=== PATIENT | female | born 1950 | race African-American/Black ===

== ENCOUNTER 2022-01-26 10:11 | Emergency (ER) | payer MEDICARE, SELFPAY ==
--- NOTE | ~2022-01-26 | XR_ITS ---
EXAMINATION: XR ELBOW, RIGHT CLINICAL INFORMATION: Fall COMPARISON: None TECHNIQUE: 1 lateral view of the right elbow. FINDINGS: Limited incomplete evaluation the provided view. The elbow joint articulation grossly appears maintained on the lateral view. Suboptimal evaluation for joint effusion, without large joint effusion identified.. On the single view, no obvious fractures seen, but evaluation is limited. XR/XR elbow RT min 3V IMPRESSION: Limited evaluation on the single lateral view. No obvious fractures seen. Evaluation for joint effusion cannot be reliably done. Recommend complete elbow x-ray imaging for further evaluation.
--- NOTE | ~2022-01-26 | XR_ITS ---
EXAMINATION: XR SHOULDER, RIGHT CLINICAL INFORMATION: Fall, pain COMPARISON: None TECHNIQUE: Three views of the right shoulder. FINDINGS: Comminuted fracture of the proximal left humeral neck. There is medial displacement of the distal bone by full shaft width, with overriding of the fracture fragments and foreshortening. Mild glenohumeral joint arthritis. Moderate acromioclavicular arthritis. No clavicle fracture is seen. There is a dual-lumen catheter projected along the right side of the mediastinum, suboptimally evaluated. XR/XR shoulder RT min 2V IMPRESSION: Comminuted displaced left proximal humeral neck fracture. Mild glenohumeral joint arthritis. Moderate acromioclavicular arthritis.
[2022-01-26 10:17] VITALS: BP 153/71; PULSE 68; RESP 18; TEMP 36.8; O2SAT 98; BMI 28.0
--- NOTE | 2022-01-26 11:23 | ECG_ITS ---
Test Reason : FALL Blood Pressure : / mmHG Vent. Rate : 074 BPM Atrial Rate : 074 BPM P-R Int : 176 ms QRS Dur : 084 ms QT Int : 410 ms P-R-T Axes : 069 031 055 degrees QTc Int : 455 ms Normal sinus rhythm Normal ECG No previous ECGs available Referred By: Brittany Overton Electronically Signed By:MONICO URIZ
--- NOTE | 2022-01-26 11:23 | ED_ITS ---
HPI - Fall General Chief Complaint: Fall Stated Complaint: Fall/R elbow pain Time Seen by Provider: 01/26/22 11:10 Source: patient and family Mode of arrival: ambulatory Limitations: no limitations History of Present Illness HPI Narrative: 72-year-old female pmhx esrd on HD (M,W,F) presents to the emergency post fall with right shoulder and elbow pain. Patient tells me she is unsure how she fell, she denies any preceding symptoms such as chest pain or shortness of breath. She tells me she thinks she was just tired and she tripped, she fell hitting her right shoulder and elbow on the ground she also had it on me wall. Patient tells me she is not anticoagulated. She did not lose consciousness. She denies headache, chest pain, shortness of breath, nausea, vomiting, fevers, chills, abdominal pain, vision changes. MD complaint: fall Onset (ago): hour(s) (2) Fall from: standing Fall witnessed: no Place fall occurred: home Loss of consciousness: none Prolonged down time: no Symptoms prior to fall: none Context: tripped/slipped Related Data Previous Rx's Medication Instructions Recorded morphine 15 mg immediate release 15 mg PO Q8H PRN pain #10 tabs 01/26/22 tablet Allergies Allergy/AdvReac Type Severity Reaction Status Date / Time nabumetone [From Relafen] Allergy Unknown Verified 01/26/22 10:20 Penicillins Allergy Unknown Verified 01/26/22 10:20 Review of Systems Review of Systems: Constitutional : No Weight loss, No Fever, No Chills, No Fatigue, No Malaise ENT/Mouth : No sore throat, No Rhinorrhea Eyes: No Eye Pain, No Swelling, No Redness Cardiovascular : No Chest Pain, No SOB, No Dyspnea on Exertion, No Orthopnea, No Edema, No Palpitations Respiratory : No Cough, No Sputum, No Wheezing Gastrointestinal : No Nausea, No Vomiting, No Diarrhea, No Constipation, No abdominal Pain, No Hematochezia, No Melena Genitourinary : No Dysuria, No Urinary Frequency, No Hematuria, Musculoskeletal : + joint pain, No Myalgias, No Joint Swelling Skin : No Skin Lesions, No rash Neuro : No Weakness, No Numbness, No Dizziness, No Headache Psych : No Anxiety/Panic, No Depression All other systems reviewed and are negative Yes all other systems are reviewed and are negative [facility] Past Medical History Attestation statement: The following information was validated with the patient. Source: old records reviewed and nursing notes reviewed Social History Social History Advance Directives: No Advance Directives Information Provided: No Physical Exam Vital Signs: Vital Signs: Last Vital Signs Temp 98.1 F 01/26/22 15:21 Pulse 78 01/26/22 15:21 Resp 16 01/26/22 15:21 BP 170/67 H 01/26/22 15:21 Pulse Ox 95 01/26/22 15:21 O2 Del Method 01/26/22 15:21 BMI result Body Mass Index 28.0 VSS Appearance: Alert.? Oriented X3.? No acute distress.? Head: Normocephalic, atraumatic, no step-offs or deformities Eyes: Pupils equal, round and reactive to light.? ENT: Pharynx normal.? Neck: Normal inspection.? Neck supple.? CVS: Normal heart rate and rhythm.? Pulses normal.? Respiratory: No respiratory distress.? Breath sounds normal.? Abdomen: Soft and nontender.? Skin: Skin warm and dry.? Normal skin color.? Normal skin turgor.? Extremities: No lower extremity edema.? No calf ttp. 5/5 strength to bilateral upper and lower extremities + deformity to R. shoulder cant move it pain w/ palpation over right shoulder + swollen RUE 2+ pulse radial left 1+ radial pulse right. + right arm fistula w/ thrill and bruit. Neuro: Oriented X 3.? No motor deficit.? No sensory deficit. CN 2-12 intact Course Reevaluation(s) Reevaluation #1: Wet read of the x-ray of the right shoulder reveals a proximal humeral fracture,. Waiting for final read. Time: 15:12 Reevaluation #2: X-ray of the right shoulder with proximal humeral fracture with overlapping fragments no dislocation. AC with degenerative changes. X-ray of the right elbow negative no acute fractures or dislocations. So CBC within normal limits. Chemistry pending. Troponin negative. EKG with normal sinus rhythm, no ST elevations or inversions that are concerning for ischemia. I do not suspect ACS. Likely trip and fall. Patient has been in normal sinus rhythm on the monitor, throughout her stay here. Chemistry pending will rule out electrolyte abnormalities with chemistry. Time: 16:07 Reevaluation #3: This case was discussed with Ananda who also discussed this case w/ Dr. Adams they tell me it will reduce on its own and we are not going to be able to alter alignment significantly w/ reduction, therefore to just put right shoulder in a sling and have her call orthopedics for follow-up. Time: 16:11 Additional Reevaluation(s): 1722 Patient is noted to have a potassium of 5.3, she was given 10 of Lokelma, BUN 76, creatinine 6.54, last dialysis session was this past ThursdayJanuary 24, scheduled for dialysis tomorrow. At this time patient will be discharged home a prompted to go to dialysis tomorrow, and follow up with Orthopedics. Advised her to return with new or worsening symptoms. Outlined worrisome signs and symptoms on discharge in 1 to return. I did obtain records from [facility], in December 2021 patient's BUN was 46, creatinine 5.2. Patient will be dialyzed tomorrow. I feel comfortable discharge home 1825 Discussed this case with Dr. Navarro who agrees patient can be discharged home with hemodialysis tomorrow. MDM - Fall MDM Narrative Medical decision making narrative: 1128 72-year-old female presents to the emergency department status post mechanical trip and fall now reporting right-sided shoulder and elbow pain times a few hours. Denies LOC. Not on blood thinners. Denies any other medical complaints. PE significant for 5/5 strength to bilateral upper and lower extremities + deformity to R. shoulder + swollen RUE 2+ pulse radial left 1+ radial pulse right. No wrist drop bilaterally. Will rule out fractures, dislocations. Plan at this time is plain films, basic labs, will obtain troponin and EKG as patient was unsure why she fell will rule out dysrhythmia/cardiac etiology Medical Records Attestation: I reviewed the patient's medical records. Lab Data Attestation: I reviewed the patient's lab results. Result diagrams: 01/26/22 15:18 01/26/22 15:18 Labs: Lab Results 01/26/22 01/26/22 01/26/22 Range/Units 15:18 15:18 15:18 WBC 9.4 (4.8-10.8) X10*3/uL RBC 4.03 L (4.20-5.50) X10*6/uL Hgb 11.3 L (12.0-16.0) g/dl Hct 35.7 L (37.0-47.0) % MCV 88.6 (80.0-98.0) fL MCH 28.0 (27.0-33.0) pg MCHC 31.7 (31.0-35.0) g/dl RDW 15.7 (11.0-16.0) % Plt Count 169 (160-400) X10*3/uL MPV 9.2 L (9.4-12.3) fL Immature Gran % (Auto) 0.7 H (0.0-0.4) % Neut % (Auto) 77.7 H (45-73) % Lymph % (Auto) 13.6 L (20-40) % Christian % (Auto) 7.1 (2-11) % Eos % (Auto) 0.6 (0-4) % Baso % (Auto) 0.3 (0-2) % Lymph # (Auto) 1.3 (1.2-4.9) X10*3/uL Christian # (Auto) 0.7 (0.1-1.2) X10*3/uL Eos # (Auto) 0.1 (0.0-0.4) X10*3/uL Baso # (Auto) 0.0 (0.0-0.2) X10*3/uL Abs Immat Gran (auto) 0.07 H (0.00-0.03) X10*3/uL Absolute Neuts (auto) 7.3 (2.0-8.3) x10*3/uL Absolute Nucleated RBC 0.000 (0.0-0.012) X10*3/uL Nucleated RBC % (auto) 0.0 (0.0-0.2) /100WBC Sodium 140 (135-145) mmol/L Potassium 5.3 H (3.3-5.1) mmol/L Chloride 105 (96-108) mmol/L Carbon Dioxide 23 (22-29) mmol/L Anion Gap 17 (12-20) BUN 76 H (9-16) mg/dL Creatinine 6.54 H* (0.5-1.4) mg/dL Estim Creat Clear Calc 7.5 Estimated GFR 6 Random Glucose 154 H (60-115) mg/dL Calcium 8.9 (8.4-10.2) mg/dL Magnesium 1.9 (1.6-2.6) mg/dL Total Bilirubin 0.3 (0.0-1.0) mg/dL AST 14 (5-31) U/L ALT 14 (0-31) U/L Alkaline Phosphatase 130 H (39-117) U/L Troponin I High Sens 5.0 (<3.5-17.0) ng/L Total Protein 6.8 (6.5-8.0) g/dL Albumin 3.6 (3.5-5.0) g/dL COVID-19 (EMIL) (Negative) COVID-19 Clin Com 01/26/22 Range/Units 15:18 WBC (4.8-10.8) X10*3/uL RBC (4.20-5.50) X10*6/uL Hgb (12.0-16.0) g/dl Hct (37.0-47.0) % MCV (80.0-98.0) fL MCH (27.0-33.0) pg MCHC (31.0-35.0) g/dl RDW (11.0-16.0) % Plt Count (160-400) X10*3/uL MPV (9.4-12.3) fL Immature Gran % (Auto) (0.0-0.4) % Neut % (Auto) (45-73) % Lymph % (Auto) (20-40) % Christian % (Auto) (2-11) % Eos % (Auto) (0-4) % Baso % (Auto) (0-2) % Lymph # (Auto) (1.2-4.9) X10*3/uL Christian # (Auto) (0.1-1.2) X10*3/uL Eos # (Auto) (0.0-0.4) X10*3/uL Baso # (Auto) (0.0-0.2) X10*3/uL Abs Immat Gran (auto) (0.00-0.03) X10*3/uL Absolute Neuts (auto) (2.0-8.3) x10*3/uL Absolute Nucleated RBC (0.0-0.012) X10*3/uL Nucleated RBC % (auto) (0.0-0.2) /100WBC Sodium (135-145) mmol/L Potassium (3.3-5.1) mmol/L Chloride (96-108) mmol/L Carbon Dioxide (22-29) mmol/L Anion Gap (12-20) BUN (9-16) mg/dL Creatinine (0.5-1.4) mg/dL Estim Creat Clear Calc Estimated GFR Random Glucose (60-115) mg/dL Calcium (8.4-10.2) mg/dL Magnesium (1.6-2.6) mg/dL Total Bilirubin (0.0-1.0) mg/dL AST (5-31) U/L ALT (0-31) U/L Alkaline Phosphatase (39-117) U/L Troponin I High Sens (<3.5-17.0) ng/L Total Protein (6.5-8.0) g/dL Albumin (3.5-5.0) g/dL COVID-19 (EMIL) Negative (Negative) COVID-19 Clin Com See Note Critical Care Time Critical Care Time Critical Care Time: Yes Total Critical Care Time: 35 Attestation: I attest to this time spent taking care of the patient, obtaining history, physical, reviewing labs, imaging, speaking to my attending, speaking to specialist. Discharge Plan Discharge Clinical Impression: Fracture of neck of humerus, CKD (chronic kidney disease) Patient Disposition: Home, Self-Care Additional Instructions: Take your medications as prescribed. If you were prescribed antibiotics today, it is important that you take your medication to their entirety, do not skip any doses, do not finish them early. Follow-up with your primary care provider this week. Return to the emergency department with new or worsening symptoms. Such as fevers, chills, chest pain, shortness of breath, nausea, vomiting, dizziness, headache, vision changes, lethargy In case of emergency call 911 Please go to hemodyalisis tomorrow your BUN was 76 and Cr 6.54 XR/XR shoulder RT min 2V IMPRESSION: Comminuted displaced left proximal humeral neck fracture. Mild glenohumeral joint arthritis. Moderate acromioclavicular arthritis. Please wear your sling as indicated, do not sleep with the sling on as this can cause strangulation. Follow-up with orthopedics. I sent morphine to your pharmacy morphine is a controlled substance narcotic that can cause addiction, drowsiness, falls and constipation. Please take this with caution. Only use morphine for severe pain for [id number] pain you can take ibuprofen every 6 hours, Tylenol every 4 hours Prescriptions: New morphine 15 mg tablet 15 mg PO Q8H PRN (Reason: pain) Qty: 10 0RF Rx Instructions: Partial Fill upon patient request. Referrals: [facility] [Provider Group] - 3 days Ambar Wilks MD [Primary Care Provider] - 1 day
[2022-01-26] MEDS: Morphine Sulfate 4 MG/ML CARTRIDGE IVPUSH (13:39)
[2022-01-26 15:21] VITALS: BP 170/67; PULSE 78; RESP 16; TEMP 36.7; O2SAT 95
[2022-01-26 15:26] LABS: MANUAL DIFF FLAG NO
[2022-01-26 15:27] LABS: Basophils Percent Auto 0.3 % (0-2); Eosinophils Absolute Auto 0.1 X10*3/uL (0.0-0.4); Eosinophils Percent Auto 0.6 % (0-4); Hematocrit 35.7 % (37.0-47.0); Hemoglobin 11.3 g/dl (12.0-16.0); Imm Gran Abs Auto 0.07 X10*3/uL (0.00-0.03); Imm Gran Pct Auto 0.7 % (0.0-0.4); Lymphocytes Absolute Auto 1.3 X10*3/uL (1.2-4.9); Lymphocytes Percent Auto 13.6 % (20-40); Mean Corpuscular HGB Conc 31.7 g/dl (31.0-35.0); Mean Corpuscular Volume 88.6 fL (80.0-98.0); Mean Platelet Volume 9.2 fL (9.4-12.3); Monocytes Absolute Auto 0.7 X10*3/uL (0.1-1.2); Monocytes Percent Auto 7.1 % (2-11); Neutrophils Absolute Auto 7.3 x10*3/uL (2.0-8.3); Neutrophils Percent Auto 77.7 % (45-73); Platelet Count 169 X10*3/uL (160-400); Red Blood Count 4.03 X10*6/uL (4.20-5.50); Red Cell Distribution Width 15.7 % (11.0-16.0); White Blood Count 9.4 X10*3/uL (4.8-10.8)
[2022-01-26 15:44] LABS: COVID-19 Test Negative (Negative)
[2022-01-26 16:14] LABS: Alanine Aminotransferase 14 U/L (0-31); Albumin Level 3.6 g/dL (3.5-5.0); Alkaline Phosphatase 130 U/L (39-117); Anion Gap 17 (12-20); Aspartate Amino Transferase 14 U/L (5-31); Bilirubin Total 0.3 mg/dL (0.0-1.0); Blood Urea Nitrogen 76 mg/dL (9-16); Calcium 8.9 mg/dL (8.4-10.2); Carbon Dioxide 23 mmol/L (22-29); Chloride 105 mmol/L (96-108); Creatinine Clr Calc Pharmacy 7.5; Estimated Glomerular Filt Rate 6; Glucose Random 154 mg/dL (60-115); Magnesium 1.9 mg/dL (1.6-2.6); Potassium 5.3 mmol/L (3.3-5.1); Sodium 140 mmol/L (135-145); Total Protein 6.8 g/dL (6.5-8.0)
[2022-01-26] MEDS: Sodium Zirconium Cyclosilicate 10 GM POWD.PACK PO (17:16)
== END 2022-01-26 19:00 | disposition home or self-care (01) ==
PROVIDERS: Physician Assistant; Emergency Provider Emergency Medicine Emergency Medical Services; PCP Family Medicine
DX: S42.201A Unspecified fracture of upper end of right humerus, initial encounter for closed fracture (principal); M25.521 Pain in right elbow; N18.6 End stage renal disease; Z99.2 Dependence on renal dialysis; Z20.822 Contact with and (suspected) exposure to COVID-19; W01.0XXA Fall on same level from slipping, tripping and stumbling without subsequent striking against object, initial encounter; Y93.9 Activity, unspecified; Y92.009 Unspecified place in unspecified non-institutional (private) residence as the place of occurrence of the external cause; Y99.9 Unspecified external cause status
CPT/HCPCS: 73030; 73080; 80053; 83735; 84484; 85025; 87635; 93005; 99283; J2270